=== PATIENT | male | born 1965 | race African-American/Black ===

== ENCOUNTER 2017-04-03 23:48 | Emergency (ER) | payer MEDICAID, OTHER ==
[~2017-04-03] VITALS: Ht 177.8 cm; Wt 86.3 kg
[~2017-04-03 23:48] MED LIST: vicodin
[2017-04-04 05:07] VITALS: BP 128/77
== END 2017-04-04 05:11 | disposition home or self-care (01) ==
LOC: ER 23:48
DX: H60.93 Unspecified otitis externa, bilateral (principal); H66.93 Otitis media, unspecified, bilateral
CPT/HCPCS: 99283